=== PATIENT | female | born 1965 | race Caucasian/White ===

== ENCOUNTER 2016-10-21 09:49 | Emergency (ER) | payer BC ==
[~2016-10-21] VITALS: Ht 172.7 cm; Wt 118.9 kg
[2016-10-21 09:55] VITALS: BP 135/92; PULSE 97; RESP 18; TEMP 98.9; O2SAT 97
--- NOTE | 2016-10-21 10:45 | PD ---
HPI Chief Complaint: ENT Complaint Time Seen by Provider: 10:23 Travel History International Travel<30 days: No Contact w/Intl Traveler<30days: No Traveled to known affect area: No History of Present Illness HPI 51-year-old female came to the emergency room with history of flulike symptoms since past 5 days. She has been coughing, nasal congestion, body aches and running fever. Last night her temperature was 101.3. Patient did not get her flu shot this winter. Patient does not have insurance or primary care at this point. She has history of diabetes which she was managing and checking last 2 years ago. However she hasn't done that in past 2 years. She was afebrile in the triage and vital signs were otherwise stable. No history of vomiting or diarrhea. Last night she was dizzy as well. [facility] Past Medical History Narrative Medical List of her past medical history, social and family history was reviewed from the nursing note. Autoimmune Disease: No Cancer: No Cardiovascular Problems: No Diabetes: Yes Diminished Hearing: No Endocrine: No Gastrointestinal Disorders: No Genitourinary: No Immune Disorder: No Musculoskeletal: No Neurologic: No Psychiatric: No Reproductive: No Respiratory: No Immunizations Current: Yes Thyroid Disease: No ?: Not Menopausal: Yes : 3 Para: 2 Miscarriage: 1 Ovarian Cysts: Yes (REMOVED , 98) Past Surgical History Abdominal Surgery: Yes (ovarian cyst and incisional hernia) Cardiac Surgery: No Ear Surgery: No Endocrine Surgery: No Eye Surgery: No Genitourinary Surgery: No Gynecologic Surgery: Yes (ovarian cyst) Hysterectomy: Yes (PARTIAL 1994) Neurologic Surgery: No Oral Surgery: Yes (wisdom teeth. upper teeth removed.) Thoracic Surgery: No Other Surgery: Yes (1994 knee kemar. 94 ovarian cyst 96 incisional hernia carpal tunnel bilateral) Social History Alcohol Use: No Tobacco Use: No Substance Use: No Allergies-Medications (Allergen,Severity, Reaction): Coded Allergies: Ancef (Verified Allergy, Severe, HIVES, 10/21/16) Iodine (Verified Allergy, Severe, ANAPHYLACTIC, 10/21/16) Comments List of her allergies reviewed from the nursing note. Reported Meds & Prescriptions Reported Meds & Active Scripts Active Glucophage (Metformin HCl) 500 Mg Tab 500 Mg PO BIDPC With meals Macrobid (Nitrofurantoin Monoh/Nitrofur Macro) 100 Mg Cap 100 Mg PO BID 10 Days Narrative Medication List of her home medications reviewed from the nursing note. Review of Systems Except as stated in HPI: all other systems reviewed are Neg Physical Exam Narrative GENERAL: Awake, alert, obese, mild distress SKIN: Warm and dry. HEAD: Atraumatic. Normocephalic. EYES: Pupils equal and round. No scleral icterus. No injection or drainage. ENT: No nasal bleeding or discharge. Mucous membranes pink and moist. NECK: Trachea midline. No JVD. CARDIOVASCULAR: Regular rate and rhythm. No murmur appreciated. RESPIRATORY: No accessory muscle use. Clear to auscultation. Breath sounds equal bilaterally. GASTROINTESTINAL: Abdomen soft, non-tender, nondistended. Hepatic and splenic margins not palpable. MUSCULOSKELETAL: No obvious deformities. No clubbing. No cyanosis. No edema. NEUROLOGICAL: Awake and alert. No obvious cranial nerve deficits. Motor grossly within normal limits. Normal speech. PSYCHIATRIC: Appropriate mood and affect; insight and judgment normal. Data Data Last Documented VS Vital Signs Date Time Temp Pulse Resp B/P Pulse Ox O2 Delivery O2 Flow Rate FiO2 10/21/16 14:25 99.0 96 18 142/88 96 10/21/16 13:46 Room Air Orders Blood Glucose (10/21/16 10:59) Chest, Single Ap (10/21/16 ) Influenzae A/B Antigen (10/21/16 10:59) Complete Blood Count With Diff (10/21/16 11:29) Comprehensive Metabolic Panel (10/21/16 11:29) B-Type Natriuretic Peptide (10/21/16 11:29) Troponin I (10/21/16 11:29) Blood Culture (10/21/16 11:29) Iv Access Insert/Monitor (10/21/16 11:29) Electrocardiogram (10/21/16 11:29) Ecg Monitoring (10/21/16 11:29) Oximetry (10/21/16 11:29) Oxygen Administration (10/21/16 11:29) Sodium Chloride 0.9% Flush (Ns Flush) (10/21/16 11:30) Urinalysis - C+S If Indicated (10/21/16 11:29) Lactic Acid (10/21/16 11:29) Sodium Chlor 0.9% 1000 Ml Inj (Ns 1000 M (10/21/16 11:30) Resp Blood Gas Venous (10/21/16 ) Blood Gas Venous (Vbg) (10/21/16 11:48) Metformin (Glucophage) (10/21/16 12:15) Urine Culture (10/21/16 12:00) Nitrofurantoin Monohyd Macrocr (Macrobid (10/21/16 13:15) Blood Glucose (10/21/16 13:14) Labs Laboratory Tests Test 10/21/16 10/21/16 10/21/16 11:48 12:00 12:20 Blood Gas Puncture Site IV Blood Gas Patient Temperature 98.6 Venous Blood pH 7.49 Venous Blood Partial Pressure 31 mmHg CO2 Venous Blood Partial Pressure 29 mmHg O2 Venous Blood HCO3 23 mmol/L Venous Blood Oxygen Saturation 62 % Venous Blood Oxygen Content 13.6 Vol % Venous Blood Base Excess -0.3 mmol/L Oxygen Delivery Device RA Blood Gas Inspired Oxygen 21 % Urine Collection Type CLEAN CATCH Urine Color YELLOW Urine Turbidity SLIGHT Urine pH 5.5 Urine Specific [place] 1.035 Urine Protein TRACE mg/dL Urine Glucose (UA) 1000 OR GREATER mg/dL Urine Ketones 40 mg/dL Urine Occult Blood TRACE Urine Nitrite POS Urine Bilirubin NEG Urine Leukocyte Esterase TRACE Urine RBC 25-49 /hpf Urine WBC 100-200 /hpf Urine WBC Clumps MOD Urine Squamous Epithelial > 8 /hpf Cells Urine Transitional Epithelial 0-5 /hpf Cells Urine Bacteria MANY /hpf Microscopic Urinalysis Comment CULTURE INDICATED Urine Collection Time 12:00 Sodium Level 138 MEQ/L Potassium Level 3.9 MEQ/L Chloride Level 106 MEQ/L Carbon Dioxide Level 21.7 MEQ/L Anion Gap 10 MEQ/L Blood Urea Nitrogen 10 MG/DL Creatinine 0.80 MG/DL Estimat Glomerular Filtration 75 ML/MIN Rate Random Glucose 355 MG/DL Lactic Acid Level 1.4 mmol/L Calcium Level 8.5 MG/DL Total Bilirubin 0.8 MG/DL Aspartate Amino Transf 20 U/L (AST/SGOT) Alanine Aminotransferase 31 U/L (ALT/SGPT) Alkaline Phosphatase 123 U/L Troponin I LESS THAN 0.02 NG/ML B-Type Natriuretic Peptide 7 PG/ML Total Protein 7.8 GM/DL Albumin 3.2 GM/DL White Blood Count 6.1 TH/MM3 Red Blood Count 5.22 MIL/MM3 Hemoglobin 15.4 GM/DL Hematocrit 45.9 % Mean Corpuscular Volume 87.8 FL Mean Corpuscular Hemoglobin 29.5 PG Mean Corpuscular Hemoglobin 33.6 % Concent Red Cell Distribution Width 12.2 % Platelet Count 214 TH/MM3 Mean Platelet Volume 8.7 FL Neutrophils (%) (Auto) 35.2 % Lymphocytes (%) (Auto) 47.0 % Monocytes (%) (Auto) 12.8 % Eosinophils (%) (Auto) 3.1 % Basophils (%) (Auto) 1.9 % Neutrophils # (Auto) 2.1 TH/MM3 Lymphocytes # (Auto) 2.9 TH/MM3 Monocytes # (Auto) 0.8 TH/MM3 Eosinophils # (Auto) 0.2 TH/MM3 Basophils # (Auto) 0.1 TH/MM3 CBC Comment DIFF FINAL Differential Comment MDM Medical Decision Making Medical Screen Exam Complete: Yes Emergency Medical Condition: Yes Medical Record Reviewed: Yes Differential Diagnosis Influenza, hyperglycemia, left right abnormalities, pneumonia, sepsis Narrative Course 1:36 PM initial blood glucose came back as 347. Chest x-ray was within normal limits and Influenza A was positive. Based on that his blood test was ordered including venous blood gas to rule out DKA. Patient is not in DKA but hyperglycemia. She also happens to have a UTI. She was given 1 dose of by mouth Macrobid and 1 L of IV fluid bolus. A repeat blood glucose has been ordered at this point. Patient has already had her flulike symptoms for past 5 days and hence it's too late to treat her with Tamiflu. I have started her on Glucophage 500 mg and we'll send her home with prescription for Macrobid and Glucophage. Patient will need to find a primary care and have ongoing management for her diabetes which I have strongly emphasized to her. I will discharge her home at this point. I'm waiting for her repeat blood glucose. Diagnosis Primary Impression: Influenza A Additional Impressions: UTI (urinary tract infection) Qualified Code: N39.0 - Urinary tract infection without hematuria, site unspecified Hyperglycemia Noncompliance with diabetes treatment Referrals: Primary Care Physician 3 days Additional Instructions: Please take the medications as per the prescription direction. You have to find a primary care for yourselves who can manage her diabetes better. Please return to the ER if the condition worsens or any other new concerns. Keep herself well hydrated telemetry a symptoms improve. Continue to check your blood sugar at least twice a day for the meals. Med/Other Pt SpecificInfo: Prescription(s) given Scripts Metformin (Glucophage)500 Mg [id number] Mg PO BIDPC #60 TAB Ref 0 With meals Prov:Matthew Ashton MD 10/21/16 Nitrofurantoin Monohydrate Macrocrystals (Macrobid)100 Mg [id number] Mg PO BID 10 Days Ref 0 Prov:Matthew Ashton MD 10/21/16 Disposition: 01 DISCHARGE HOME Condition: Stable Matthew Ashton MD Oct 21, 2016 10:45
--- NOTE | 2016-10-21 11:27 | RADHPO ---
EXAM DATE/TIME: 10/21/2016 11:09 [facility] COMPARISON: No previous studies available for comparison. INDICATIONS : cough, congestion, short of breath, runny nose. MEDICAL HISTORY : Venous insufficiency. Asthma. Diabetic. SURGICAL HISTORY : Ovarian cyst removal.Partial hysterectomy. Hernia repair. ENCOUNTER: Initial ACUITY: 4 - 6 days PAIN SCORE: 0/10 LOCATION: chest FINDINGS: A single view of the chest demonstrates the lungs to be symmetrically aerated without evidence of mas s, infiltrate or effusion. The cardiomediastinal contours are unremarkable. Osseous structures are intact. CONCLUSION: No acute disease. There is no evidence of pneumonia Romeo Trinidad MD on October 21, 2016 at 11:21 Board Certified Radiologist. This report was verified electronically.
[2016-10-21] MEDS ORDERED: SODIUM CHLOR 0.9% 1000 ML INJ 1,000 ML IV ONE (11:30)
[2016-10-21] MEDS ORDERED: SODIUM CHLORIDE 0.9% FLUSH 5 ML FLUSH IVF PRN (11:30)
[2016-10-21 12:01] LABS: BLOOD GAS VENOUS BASE EXCESS -0.3 mmol/L (-2-2); BLOOD GAS VENOUS HCO3 23 mmol/L (22-26); BLOOD GAS VENOUS O2 CONTENT 13.6 Vol % (9.0-17.0); BLOOD GAS VENOUS O2 HGB SAT 62 % (70-76); BLOOD GAS VENOUS PCO2 31 mmHg (44-48); BLOOD GAS VENOUS PO2 29 mmHg (35-40); BLOOD GAS VENOUS pH 7.49 (7.360-7.400); TEMP CORR TO 98.6
[2016-10-21 12:03] LABS: CRITICAL VALUE YES; DRAW SITE IV; FIO2 21 %; OXYGEN DEVICE RA; STAT YES
[2016-10-21] MEDS ORDERED: metFORMIN HCL 500 MG TAB PO ONE (12:15)
[2016-10-21 12:20] LABS: BLOOD, URINE TRACE (NEG); KETONE, URINE 40 mg/dL (NEG); PH, URINE 5.5 (5.0-8.5)
[2016-10-21 12:21] LABS: GLUCOSE,URINE 1000 OR GREATER mg/dL (NEG); METHOD OF COLLECTION CLEAN CATCH; NITRITE,URINE POS (NEG)
[2016-10-21 12:22] LABS: URINE COLOR YELLOW (YELLW/STRAW); WBC, URINE 100-200 /hpf (0-5)
[2016-10-21 12:23] LABS: BACTERIA, URINE MANY /hpf; COMMENT (UR) CULTURE INDICATED; CULTURE IF INDICATED CULTURE INDICATED; SQUAMOUS EPITHELIAL CELL URINE > 8 /hpf (0-5); TRANSITIONAL EPI CELLS, URINE 0-5 /hpf
[2016-10-21 12:30] LABS: AUTOMATED NEUTROPHIL # 2.1 TH/MM3 (1.8-7.7); BASOPHIL # 0.1 TH/MM3 (0-0.2); BASOPHIL % 1.9 % (0.0-2.0); EOSINOPHIL # 0.2 TH/MM3 (0-0.4); EOSINOPHIL % 3.1 % (0.0-4.0); HEMATOCRIT 45.9 % (35.0-46.0); HEMO FLAGS DIFF FINAL; LYMPHOCYTE # 2.9 TH/MM3 (1.0-4.8); MEAN CELL VOLUME 87.8 FL (80.0-100.0); MEAN CORPUSCULAR HEMOGLOBIN 29.5 PG (27.0-34.0); MEAN CORPUSCULAR HGB CONC 33.6 % (32.0-36.0); MONO % 12.8 % (0.0-8.0); NEUT % 35.2 % (16.0-70.0); PLATELET COUNT 214 TH/MM3 (150-450); RED BLOOD COUNT 5.22 MIL/MM3 (4.00-5.30); RED CELL DISTRIBUTION WIDTH 12.2 % (11.6-17.2); WHITE BLOOD COUNT 6.1 TH/MM3 (4.0-11.0)
[2016-10-21 12:39] LABS: CHLORIDE 106 MEQ/L (98-107); POTASSIUM 3.9 MEQ/L (3.5-5.1); SODIUM (NA) 138 MEQ/L (136-145)
[2016-10-21 12:43] LABS: ANION GAP 10 MEQ/L (5-15); BICARBONATE 21.7 MEQ/L (21.0-32.0); BLOOD UREA NITROGEN 10 MG/DL (7-18)
[2016-10-21 12:46] LABS: ALT (GPT) 31 U/L (10-53); AST (GOT) 20 U/L (15-37); GLOMERULAR FILTRATION RATE 75 ML/MIN (>89)
[2016-10-21 12:47] LABS: TOTAL BILIRUBIN ADULT 0.8 MG/DL (0.2-1.0)
[2016-10-21 12:49] LABS: ALKALINE PHOSPHATASE 123 U/L (45-117)
[2016-10-21] MEDS ORDERED: NITROFURANTOIN MONOHYD MACROCR 100 MG CAP PO ONE (13:15)
[2016-10-21] MEDS ORDERED: METF500 PO (13:39)
[2016-10-21] MEDS ORDERED: MACR100C2 PO (13:39)
[2016-10-21 13:46] VITALS: RESP 16; O2SAT 97
[2016-10-21 14:25] VITALS: BP 142/88; TEMP 99
--- NOTE | 2016-10-22 15:11 | EKG ---
Date Performed: 10/21/2016 Time Performed: 11:42:44 PTAGE: 51 years EKG: Sinus rhythm Low QRS voltages in precordial leads Borderline ECG NO PREVIOUS TRACING DOCTOR: Gregg Jones Interpretating Date/Time 10/22/2016 15:10:41
== END 2016-10-21 14:26 | disposition home or self-care (01) ==
LOC: PHEFT 09:49
DX: J09.X2 Influenza due to identified novel influenza A virus with other respiratory manifestations (principal); N39.0 Urinary tract infection, site not specified; B96.20 Unspecified Escherichia coli [E. coli] as the cause of diseases classified elsewhere; E11.65 Type 2 diabetes mellitus with hyperglycemia; Z91.14 Patient's other noncompliance with medication regimen
CPT/HCPCS: 71010; 80053; 81001; 82805; 83605; 83880; 84484; 85025; 87040; 87077; 87086; 87186; 87804; 93005; 99284; J7030

== ENCOUNTER 2016-10-27 14:33 | Emergency (ER) | payer BC ==
[~2016-10-27] VITALS: Ht 172.7 cm; Wt 119.2 kg
[~2016-10-27 14:33] MED LIST: MACR100C2 PO; METF500 PO
[2016-10-27 14:46] VITALS: BP 126/86; PULSE 89; RESP 18; TEMP 99.3; O2SAT 98
[2016-10-27] MEDS ORDERED: DEXAMETHASONE SOD PHOS 20 MG/5 ML VIAL IV PUSH ONE (18:45)
[2016-10-27] MEDS ORDERED: SODIUM CHLOR 0.9% 1000 ML INJ 1,000 ML IV SCH ×2 (18:45)
[2016-10-27] MEDS ORDERED: ONDANSETRON HCL 4 MG/2 ML VIAL IV PUSH ONE (18:45)
[2016-10-27 18:48] LABS: BLOOD, URINE NEG (NEG); GLUCOSE,URINE 250 mg/dL (NEG); KETONE, URINE NEG (NEG)
[2016-10-27 18:50] LABS: AUTOMATED NEUTROPHIL # 4.3 TH/MM3 (1.8-7.7); BASOPHIL # 0.1 TH/MM3 (0-0.2); BASOPHIL % 1.3 % (0.0-2.0); EOSINOPHIL # 0.3 TH/MM3 (0-0.4); EOSINOPHIL % 3.5 % (0.0-4.0); HEMATOCRIT 42.7 % (35.0-46.0); HEMO FLAGS DIFF FINAL; LYMPHOCYTE # 3.5 TH/MM3 (1.0-4.8); MEAN CELL VOLUME 87.1 FL (80.0-100.0); MEAN CORPUSCULAR HEMOGLOBIN 29.4 PG (27.0-34.0); MEAN CORPUSCULAR HGB CONC 33.8 % (32.0-36.0); MONO % 9.3 % (0.0-8.0); NEUT % 46.9 % (16.0-70.0); PLATELET COUNT 289 TH/MM3 (150-450); RED CELL DISTRIBUTION WIDTH 12.1 % (11.6-17.2)
[2016-10-27 18:56] LABS: CHLORIDE 106 MEQ/L (98-107); POTASSIUM 3.7 MEQ/L (3.5-5.1); SODIUM (NA) 141 MEQ/L (136-145)
[2016-10-27 18:57] LABS: NITRITE,URINE POS (NEG); URINE COLOR YELLOW (YELLW/STRAW)
--- NOTE | 2016-10-27 18:57 | RADHPO ---
EXAM DATE/TIME: 10/27/2016 18:44 [facility] COMPARISON: CHEST SINGLE AP, October 21, 2016, 11:09. INDICATIONS : Flu like symptoms x 1 week. Cough. MEDICAL HISTORY : Diabetes mellitus type II. SURGICAL HISTORY : None. ENCOUNTER: Subsequent ACUITY: 1 week PAIN SCORE: 2/10 LOCATION: Bilateral chest FINDINGS: A single view of the chest demonstrates the lungs to be symmetrically aerated without evidence of mas s, infiltrate or effusion. The cardiomediastinal contours are unremarkable. Osseous structures are intact. CONCLUSION: No acute disease. No significant change has occurred. Kali Patel MD on October 27, 2016 at 18:55 Board Certified Radiologist. This report was verified electronically.
[2016-10-27 18:59] LABS: BACTERIA, URINE MANY /hpf; COMMENT (UR) CULTURE INDICATED; CULTURE IF INDICATED CULTURE INDICATED; RBC, URINE 0-3 /hpf (0-3)
[2016-10-27 19:00] LABS: ANION GAP 9 MEQ/L (5-15); BICARBONATE 26.3 MEQ/L (21.0-32.0); BLOOD UREA NITROGEN 7 MG/DL (7-18)
[2016-10-27 19:03] LABS: ALT (GPT) 37 U/L (10-53); AST (GOT) 20 U/L (15-37); GLOMERULAR FILTRATION RATE 86 ML/MIN (>89)
[2016-10-27 19:04] LABS: TOTAL BILIRUBIN ADULT 0.9 MG/DL (0.2-1.0)
[2016-10-27 19:06] LABS: ALKALINE PHOSPHATASE 110 U/L (45-117)
[2016-10-27 19:07] VITALS: RESP 18; O2SAT 98
[2016-10-27] MEDS ORDERED: CIPROFLOXACIN 400 MG PREMIX 200 ML IV ONE (19:45)
[2016-10-27] MEDS ORDERED: FLUCONAZOLE 100 MG TAB PO ONE (19:45)
[2016-10-27] MEDS ORDERED: LEVA750T PO ×2 (19:54→20:01)
[2016-10-27] MEDS ORDERED: FLUC150T PO ×2 (19:54→20:01)
--- NOTE | 2016-10-27 19:55 | PD ---
HPI Chief Complaint: Fever Time Seen by Provider: 17:42 Travel History International Travel<30 days: No Contact w/Intl Traveler<30days: No Traveled to known affect area: No History of Present Illness HPI So 51 year-old woman presents to the emergency department complaining of feeling poorly for the past week or 2. She was diagnosed with flu a 6 days ago. She's had urinary discomfort and was diagnosed with a UTI as well. She take the antibiotics that she was given but then developed diarrhea and a yeast infection. She's had persistent diarrhea, cough congestion, myalgias, and UTI symptoms. Over the past day or so she also developed prominent cervical adenopathy which is tender. History Past Medical History Narrative Medical Diabetes Menopausal: Yes : 3 Para: 2 Social History Alcohol Use: No Tobacco Use: No Allergies-Medications (Allergen,Severity, Reaction): Coded Allergies: Ancef (Verified Allergy, Severe, HIVES, 10/27/16) Iodine (Verified Allergy, Severe, ANAPHYLACTIC, 10/27/16) Reported Meds & Prescriptions Reported Meds & Active Scripts Active Glucophage (Metformin HCl) 500 Mg Tab 500 Mg PO BIDPC With meals Review of Systems Except as stated in HPI: all other systems reviewed are Neg Physical Exam Narrative GENERAL: Obese 51 year-old woman, tearful and sad, but nontoxic appearing. SKIN: Warm and dry. HEAD: Atraumatic. Normocephalic. EYES: Pupils equal and round. No scleral icterus. No injection or drainage. ENT: No nasal bleeding or discharge. Mucous membranes pink and moist. NECK: Trachea midline. Marked anterior cervical adenopathy, especially on the left. Tender. CARDIOVASCULAR: Regular rate and rhythm. No murmur appreciated. RESPIRATORY: No accessory muscle use. Clear to auscultation. Breath sounds equal bilaterally. GASTROINTESTINAL: Abdomen soft, non-tender, nondistended. Hepatic and splenic margins not palpable. MUSCULOSKELETAL: No obvious deformities. No edema. NEUROLOGICAL: Awake and alert. No obvious cranial nerve deficits. Motor grossly within normal limits. Normal speech. PSYCHIATRIC: Appropriate mood and affect; insight and judgment normal. Data Data Last Documented VS Vital Signs Date Time Temp Pulse Resp B/P Pulse Ox O2 Delivery O2 Flow Rate FiO2 10/27/16 19:08 85 18 98 Room Air 10/27/16 14:46 99.3 126/86 Orders Complete Blood Count With Diff (2/23/17 18:31) Comprehensive Metabolic Panel (10/27/16 18:31) Lactic Acid Sepsis Protocol (10/27/16 18:31) Urinalysis - C+S If Indicated (10/27/16 18:31) Chest, Single Ap (10/27/16 18:31) Blood Glucose (10/27/16 18:31) Ecg Monitoring (10/27/16 18:31) Iv Access Insert/Monitor (10/27/16 18:31) Oximetry (10/27/16 18:31) Oxygen Administration (10/27/16 18:31) Sodium Chlor 0.9% 1000 Ml Inj (Ns 1000 M (10/27/16 18:45) Sodium Chlor 0.9% 1000 Ml Inj (Ns 1000 M (10/27/16 18:45) Dexamethasone Inj (Decadron Inj) (10/27/16 18:45) Ondansetron Inj (Zofran Inj) (10/27/16 18:45) Urine Culture (10/27/16 18:40) Fluconazole (Diflucan) (10/27/16 19:45) Ciprofloxacin 400 Mg Premix (Cipro 400 M (10/27/16 19:45) Labs Laboratory Tests Test 10/27/16 18:40 White Blood Count 9.0 TH/MM3 Red Blood Count 4.90 MIL/MM3 Hemoglobin 14.4 GM/DL Hematocrit 42.7 % Mean Corpuscular Volume 87.1 FL Mean Corpuscular Hemoglobin 29.4 PG Mean Corpuscular Hemoglobin 33.8 % Concent Red Cell Distribution Width 12.1 % Platelet Count 289 TH/MM3 Mean Platelet Volume 8.0 FL Neutrophils (%) (Auto) 46.9 % Lymphocytes (%) (Auto) 39.0 % Monocytes (%) (Auto) 9.3 % Eosinophils (%) (Auto) 3.5 % Basophils (%) (Auto) 1.3 % Neutrophils # (Auto) 4.3 TH/MM3 Lymphocytes # (Auto) 3.5 TH/MM3 Monocytes # (Auto) 0.8 TH/MM3 Eosinophils # (Auto) 0.3 TH/MM3 Basophils # (Auto) 0.1 TH/MM3 CBC Comment DIFF FINAL Differential Comment Urine Color YELLOW Urine Turbidity CLOUDY Urine pH 6.0 Urine Specific [place] 1.020 Urine Protein NEG mg/dL Urine Glucose (UA) 250 mg/dL Urine Ketones NEG mg/dL Urine Occult Blood NEG Urine Nitrite POS Urine Bilirubin NEG Urine Leukocyte Esterase SMALL Urine RBC 0-3 /hpf Urine WBC 50-99 /hpf Urine Squamous Epithelial 6-8 /hpf Cells Urine Bacteria MANY /hpf Microscopic Urinalysis Comment CULTURE INDICATED Sodium Level 141 MEQ/L Potassium Level 3.7 MEQ/L Chloride Level 106 MEQ/L Carbon Dioxide Level 26.3 MEQ/L Anion Gap 9 MEQ/L Blood Urea Nitrogen 7 MG/DL Creatinine 0.71 MG/DL Estimat Glomerular Filtration 86 ML/MIN Rate Random Glucose 176 MG/DL Lactic Acid Level 1.2 mmol/L Calcium Level 9.0 MG/DL Total Bilirubin 0.9 MG/DL Aspartate Amino Transf 20 U/L (AST/SGOT) Alanine Aminotransferase 37 U/L (ALT/SGPT) Alkaline Phosphatase 110 U/L Total Protein 7.8 GM/DL Albumin 3.5 GM/DL MDM Medical Decision Making Medical Screen Exam Complete: Yes Emergency Medical Condition: Yes Interpretation(s) Laboratory Tests Test 10/27/16 18:40 White Blood Count 9.0 TH/MM3 Red Blood Count 4.90 MIL/MM3 Hemoglobin 14.4 GM/DL Hematocrit 42.7 % Mean Corpuscular Volume 87.1 FL Mean Corpuscular Hemoglobin 29.4 PG Mean Corpuscular Hemoglobin 33.8 % Concent Red Cell Distribution Width 12.1 % Platelet Count 289 TH/MM3 Mean Platelet Volume 8.0 FL Neutrophils (%) (Auto) 46.9 % Lymphocytes (%) (Auto) 39.0 % Monocytes (%) (Auto) 9.3 % Eosinophils (%) (Auto) 3.5 % Basophils (%) (Auto) 1.3 % Neutrophils # (Auto) 4.3 TH/MM3 Lymphocytes # (Auto) 3.5 TH/MM3 Monocytes # (Auto) 0.8 TH/MM3 Eosinophils # (Auto) 0.3 TH/MM3 Basophils # (Auto) 0.1 TH/MM3 CBC Comment DIFF FINAL Differential Comment Urine Color YELLOW Urine Turbidity CLOUDY Urine pH 6.0 Urine Specific [place] 1.020 Urine Protein NEG mg/dL Urine Glucose (UA) 250 mg/dL Urine Ketones NEG mg/dL Urine Occult Blood NEG Urine Nitrite POS Urine Bilirubin NEG Urine Leukocyte Esterase SMALL Urine RBC 0-3 /hpf Urine WBC 50-99 /hpf Urine Squamous Epithelial 6-8 /hpf Cells Urine Bacteria MANY /hpf Microscopic Urinalysis Comment CULTURE INDICATED Sodium Level 141 MEQ/L Potassium Level 3.7 MEQ/L Chloride Level 106 MEQ/L Carbon Dioxide Level 26.3 MEQ/L Anion Gap 9 MEQ/L Blood Urea Nitrogen 7 MG/DL Creatinine 0.71 MG/DL Estimat Glomerular Filtration 86 ML/MIN Rate Random Glucose 176 MG/DL Lactic Acid Level 1.2 mmol/L Calcium Level 9.0 MG/DL Total Bilirubin 0.9 MG/DL Aspartate Amino Transf 20 U/L (AST/SGOT) Alanine Aminotransferase 37 U/L (ALT/SGPT) Alkaline Phosphatase 110 U/L Total Protein 7.8 GM/DL Albumin 3.5 GM/DL Differential Diagnosis Influenza, UTI, infection, other Narrative Course Medical decision-making milana jaramillo is a 51 year-old woman presents to the emergency department feeling generally poorly with known influenza A, previous UTI with Escherichia coli, who is having persistent symptoms. About 6 days now. She feels miserable. She is tearful and crying because she's been waiting so long in the emergency department. I don't think this is anything more sinister. Her blood sugars been under good control and she is just on metformin. I think that dose steroids to give her some relief from the discomfort from her adenopathy. We can give her some IV fluids, Toradol, and check labs to make sure is no evidence of severe sepsis or marked electrolyte derangements. We'll place patient on Cipro for her UTI. We'll give her a dose of fluconazole for her [place] infection, recommend follow-up. Diagnosis Primary Impression: Influenza A Additional Impression: UTI (urinary tract infection) Qualified Code: N30.00 - Acute cystitis without hematuria Additional Instructions: Take fluconazole in one week if yeast infection persist. Take Levaquin as prescribed. Follow-up with your primary doctor in 2-4 days. Return to the emergency department for any new or worsening symptoms. Med/Other Pt SpecificInfo: Prescription(s) given Scripts Fluconazole 150 Mg [id number] Mg PO ONCE #1 TAB Ref 0 Prov:Monroe Sauceda MD 10/27/16 Levofloxacin (Levaquin)750 Mg [id number] Mg PO DAILY 5 Days Ref 0 Prov:Monroe Sauceda MD 10/27/16 Disposition: 01 DISCHARGE HOME Condition: Stable Monroe Sauceda MD Oct 27, 2016 19:54
[2016-10-27] MEDS ORDERED: HYDR1SOL20 PO (20:21)
[2016-10-27 20:33] VITALS: BP 133/80; PULSE 77; RESP 18; TEMP 98.7; O2SAT 99
[2016-10-27 21:23] VITALS: BP 145/86
== END 2016-10-27 21:25 | disposition home or self-care (01) ==
LOC: PHED 14:33
DX: J09.X2 Influenza due to identified novel influenza A virus with other respiratory manifestations (principal); N39.0 Urinary tract infection, site not specified; M79.1 Myalgia; E11.9 Type 2 diabetes mellitus without complications; B96.20 Unspecified Escherichia coli [E. coli] as the cause of diseases classified elsewhere
CPT/HCPCS: 71010; 80053; 81001; 83605; 85025; 87077; 87086; 87186; 96361; 96365; 96375; 99284; J0744; J1100; J2405; J7030

== ENCOUNTER 2017-08-24 14:30 | Emergency (ER) | payer BC ==
[~2017-08-24] VITALS: Ht 172.7 cm; Wt 120.3 kg
[~2017-08-24 14:30] MED LIST changes: -MACR100C2 PO
[2017-08-24 14:40] VITALS: BP 152/82; PULSE 80; RESP 17; TEMP 98.2; O2SAT 97
[2017-08-24] MEDS ORDERED: DIABETIC MED (14:50)
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
--- NOTE | 2017-08-24 15:14 | RADRPT ---
EXAM DATE/TIME: 08/24/2017 14:56 [facility] COMPARISON: ELBOW RIGHT COMPLETE (4 VWS), July 02, 2017, 19:03. INDICATIONS : Hit elbow on the wall yesterday and is having pain and swelling on lateral side. MEDICAL HISTORY : None. SURGICAL HISTORY : Rt. elbow surgery. ENCOUNTER: Initial ACUITY: 1 day PAIN SCORE: 7/10 LOCATION: Right Lateral side FINDINGS: Multiple view examination of the right elbow demonstrates marked bony remodeling of the radial head a nd neck region. There 5 screws within the distal humerus laterally. There is an ununited lateral epic ondyle fracture unchanged. I don't see any obvious foreign body in the subcutaneous tissues. No joint effusion is seen. No ostial lysis to suggest infection.. Bony mineralization is normal. CONCLUSION: Stable examination of the right elbow. 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 No acute fracture or change identified Monroe Jaimes MD on August 24, 2017 at 15:11 Board Certified Radiologist. This report was verified electronically.
[2017-08-24] MEDS ORDERED: NAPR500T2 PO (15:31)
[2017-08-24] MEDS ORDERED: NAPROXEN 500 MG TAB PO ONE (15:45)
== END 2017-08-24 15:42 | disposition home or self-care (01) ==
LOC: PHEFT 14:30
DX: M79.601 Pain in right arm (principal); M79.1 Myalgia; E11.9 Type 2 diabetes mellitus without complications; Z79.84 Long term (current) use of oral hypoglycemic drugs
CPT/HCPCS: 73080; 99283

== ENCOUNTER → 2017-10-24 | Day surgery (SDC) | payer BC ==
[~2017-10-24] VITALS: Ht 172.7 cm; Wt 120.4 kg
[~2017-10-24] MED LIST changes: +ACETAMINOPHEN 1000 MG/100 ML 100 ML IV ONE; +ACETAMINOPHEN/HYDROcodone 325 MG/7.5 MG TAB PO PRN; +BUPIVACAINE HCL PF 0.5% 30 ML VIAL ONE; +CANA1TAB7 PO; +CHLORHEXIDINE GLUCONATE 2 % 1 PACK (2 CLOTHS) TOPICAL PRN; +CHLORHEXIDINE GLUCONATE 4% SOLN 120 ML BTL TOPICAL SCH; +CLINDAMYCIN 900 MG/NS 100 ML IV SCH; +CLINDAMYCIN PHOS 900 MG/6 ML VIAL ONE; +DEXAMETHASONE SOD PHOS 4 MG/ML VIAL IV ONE; +FAT EMULSION 20% INJ 0 ML ONE; +GENTAMICIN SULFATE 80 MG/2 ML VIAL ONE; +GLYCOPYRROLATE 1 MG/5 ML SYRINGE IV PUSH ONE; +HYDR-3366 PO; +LACTATED RINGER'S 1000 ML IV PRN; +LIDOCAINE HCL 1% PF 5 ML AMPULE ONE; +LIDOCAINE HCL 1% PF 5 ML SYRINGE OTHER ONE; -METF500 PO; +METOPROLOL TARTRATE 25 MG TAB PO PRN; +MIDAZOLAM HCL 2 MG/2 ML VIAL ONE; +MORPHINE SULFATE 4 MG/ML INJ IV PUSH PRN; +NEOSTIGMINE 5 MG/5 ML SYRINGE IV PUSH ONE; +ONDANSETRON HCL 4 MG/2 ML VIAL IV ONE; +ONDANSETRON HCL 4 MG/2 ML VIAL IV PUSH PRN; +PROPOFOL 200 MG/20 ML AMP IV ONE; +ROCURONIUM INJ 50 MG/5 ML SYRINGE IV PUSH ONE; +SODIUM CHLORID 0.9% 500 ML IV PRN; +SODIUM CHLORIDE 0.9% FLUSH 10 ML FLUSH IV FLUSH PRN; +SODIUM CHLORIDE 0.9% FLUSH 10 ML FLUSH IV FLUSH SCH; +SODIUM CHLORIDE 0.9% INJ 100 ML ONE; +VANCOMYCIN 1000 MG/NS 250 ML (for <70 kg) IV SCH; +VANCOMYCIN HCL 1000 MG VIAL ONE
[2017-10-24 07:55] VITALS: PULSE 80
--- NOTE | 2017-10-24 10:41 | PD.OP ---
cc: Jaylen Orozco MD Operative Report Date of Surgery: Oct 24, 2017 Preoperative Diagnosis: Painful hardware right elbow Postoperative Diagnosis: Procedure: Removal of deep hardware right elbow, capsulectomy right elbow, manipulation under anesthesia right elbow Anesthesia: Gen. Surgeon: Jaylen Orozco Supply Chain Manager(s): IVETT Tolbert PA-C The surgical procedure was assisted by my physician assistant manager pt. My P.A. presence was necessary throughout this case for the manipulation and positioning of the surgical extremity. My P.A. was assisting me throughout the duration of this procedure. The skill set of a physician assistant manager pt was medically necessary to complete this procedure. During the surgical case the machine tool technology instructor was working at the back table and the physician assistant manager pt was directly assisting me. Operation and Findings: Elena is well-known to me from previous surgery for comminuted intra-articular right distal humerus fracture. Patient continued to have pain and crepitus with elbow motion. Patient wished to have hardware removed. I had a long discussion with patient regarding potential complications including injury to the radial, median, and ulnar nerves which could cause paralysis and weakness of the hand. After detailed discussion of risk and benefits, patient wished to proceed with surgery. Operative site was marked. She was brought to the operative room. She is given IV sedation and general anesthesia. Right arm was prepped with alcohol followed by Hibiclens and draped usual sterile fashion. Timeout procedure was performed. IV antibiotics were given prior to incision. Procedure began with a 5 inch incision over the antecubital fossa. Incision was made through previous scar. Subcutaneous tissues dissected with Bovie. There was dense scar tissue and antecubital fossa. The biceps muscle was identified. The brachial radialis muscle was also identified. The interval between these 2 muscles was opened. The radial nerve was identified and this interval and protected throughout the procedure. At this point the anterior capsule was visualized. Attention was now turned to capsulectomy. Soft tissue was retracted. The capsule was incised longitudinally. A portion of the capsule was excised. Care was taken to avoid injury to the median nerve and brachial artery. Next attention was turned to removal of hardware. There were a total of 5 screws in the distal humerus. Each of the screws was identified under fluoroscopy. 3 of the screw heads were visible. Each of the screws was removed using appropriate screwdriver. The other 2 screws were identified under fluoroscopy. Using a drill bit and curet the screw heads were exposed. These 2 screws were now removed. Fluoroscopy confirmed removal appropriate hardware. At this point attention was turned to gentle manipulation under anesthesia. The elbow was flexed and gently extended. The patient asleep I was able to achieve extension to 30 and flexion to 120. Additional anterior capsule was released carefully. I was unable to achieve any further motion. The wound was thoroughly irrigated. Hemostasis was confirmed. Subcutaneous tissues closed with 3-0 Vicryl and skin was closed with 3-0 nylon. Sterile dressings were applied. Patient was awakened and transferred to recovery room in stable condition. Jaylen Orozco MD Oct 24, 2017 10:41
[2017-10-24 11:52] VITALS: TEMP 97.6
[2017-10-24 12:44] VITALS: BP 112/69; PULSE 91; RESP 18; O2SAT 94
--- NOTE | 2017-10-24 17:58 | RADRPT ---
EXAM DATE/TIME: 10/24/2017 10:23 [facility] COMPARISON: ELBOW RIGHT COMPLETE (4 VWS), August 24, 2017, 14:56. INDICATIONS : Hardware removal of the right elbow. MEDICAL HISTORY : Hypertension. Diabetes mellitus type II. SURGICAL HISTORY : Hardware placement. ENCOUNTER: Initial ACUITY: 1 day PAIN SCORE: Non-responsive. LOCATION: Right elbow. FINDINGS: Single frontal view of the elbow was performed digitally using C-arm after removal of screws. No met allic densities seen. CONCLUSION: Intraoperative image. Andrea Garcia MD on October 24, 2017 at 17:55 Board Certified Radiologist. This report was verified electronically.
--- NOTE | 2017-10-24 18:55 | EKG ---
Date Performed: 10/24/2017 Time Performed: 07:08:44 PTAGE: 52 years EKG: Sinus rhythm NORMAL ECG Since the prior tracing, there has been no significant change PREVIOUS TRACING : 10/21/2016 11.42 DOCTOR: Arlyn Wilson Interpretating Date/Time 10/24/2017 18:48:58
== END | disposition home or self-care (01) ==
LOC: HSDC 06:26
PROVIDERS: ATTEND Orthopaedic Surgery Orthopaedic Trauma
DX: T84.84XA Pain due to internal orthopedic prosthetic devices, implants and grafts, initial encounter (principal); M77.01 Medial epicondylitis, right elbow; G56.11 Other lesions of median nerve, right upper limb; I10 Essential (primary) hypertension; E11.9 Type 2 diabetes mellitus without complications; Y83.1 Surgical operation with implant of artificial internal device as the cause of abnormal reaction of the patient, or of later complication, without mention of misadventure at the time of the procedure; Z01.810 Encounter for preprocedural cardiovascular examination
CPT/HCPCS: 01740; 20680; 24006; 64415; 73070; 76000; 93005; J0131; J1100; J1580; J2250; J2405; J2710; J3010; J3370; J7050; J7120

== ENCOUNTER 2018-01-29 19:42 | Emergency (ER) | payer BC ==
[~2018-01-29] VITALS: Ht 172.7 cm; Wt 121.9 kg
[~2018-01-29 19:42] MED LIST changes: -ACETAMINOPHEN 1000 MG/100 ML 100 ML IV ONE; -ACETAMINOPHEN/HYDROcodone 325 MG/7.5 MG TAB PO PRN; -BUPIVACAINE HCL PF 0.5% 30 ML VIAL ONE; -CHLORHEXIDINE GLUCONATE 2 % 1 PACK (2 CLOTHS) TOPICAL PRN; -CHLORHEXIDINE GLUCONATE 4% SOLN 120 ML BTL TOPICAL SCH; -CLINDAMYCIN 900 MG/NS 100 ML IV SCH; -CLINDAMYCIN PHOS 900 MG/6 ML VIAL ONE; -DEXAMETHASONE SOD PHOS 4 MG/ML VIAL IV ONE; -FAT EMULSION 20% INJ 0 ML ONE; -GENTAMICIN SULFATE 80 MG/2 ML VIAL ONE; -GLYCOPYRROLATE 1 MG/5 ML SYRINGE IV PUSH ONE; -LACTATED RINGER'S 1000 ML IV PRN; -LIDOCAINE HCL 1% PF 5 ML AMPULE ONE; -LIDOCAINE HCL 1% PF 5 ML SYRINGE OTHER ONE; -METOPROLOL TARTRATE 25 MG TAB PO PRN; -MIDAZOLAM HCL 2 MG/2 ML VIAL ONE; -MORPHINE SULFATE 4 MG/ML INJ IV PUSH PRN; -NEOSTIGMINE 5 MG/5 ML SYRINGE IV PUSH ONE; -ONDANSETRON HCL 4 MG/2 ML VIAL IV ONE; -ONDANSETRON HCL 4 MG/2 ML VIAL IV PUSH PRN; -PROPOFOL 200 MG/20 ML AMP IV ONE; -ROCURONIUM INJ 50 MG/5 ML SYRINGE IV PUSH ONE; -SODIUM CHLORID 0.9% 500 ML IV PRN; -SODIUM CHLORIDE 0.9% FLUSH 10 ML FLUSH IV FLUSH PRN; -SODIUM CHLORIDE 0.9% FLUSH 10 ML FLUSH IV FLUSH SCH; -SODIUM CHLORIDE 0.9% INJ 100 ML ONE; -VANCOMYCIN 1000 MG/NS 250 ML (for <70 kg) IV SCH; -VANCOMYCIN HCL 1000 MG VIAL ONE
[2018-01-29 19:44] VITALS: BP 149/46; PULSE 95; RESP 18; TEMP 98.9; O2SAT 97
[2018-01-29] MEDS ORDERED: CLIN300C5 PO (20:04)
--- NOTE | 2018-01-29 20:09 | PD ---
HPI . Left thigh lesion Chief Complaint: Bite or Sting Time Seen by Provider: 19:56 Travel History International Travel<30 days: No Contact w/Intl Traveler<30days: No Traveled to known affect area: No History of Present Illness HPI Patient presents with chief complaint of an apparent bug bite to the left medial thigh. She states that she was fine when she went to bed last night but awakened this morning with the bite. It has gotten progressively worse over the course of the day. She states that it does not itch but does hurt. She rates the pain at 5/10. There are no modifying factors. PFSH Past Medical History Autoimmune Disease: No Cancer: No Cardiovascular Problems: No Diabetes: Yes Patient Takes Glucophage: Yes Diminished Hearing: No Endocrine: No Gastrointestinal Disorders: No Genitourinary: No Hepatitis: No Hiatal Hernia: No Immune Disorder: No Musculoskeletal: Yes (shattered R elbow 5 years ago) Neurologic: No Psychiatric: No Reproductive: No Respiratory: No Immunizations Current: Yes Thyroid Disease: No Tetanus Vaccination: < 5 Years Influenza Vaccination: Yes ?: Not Menopausal: Yes : 3 Para: 2 Miscarriage: 1 Ovarian Cysts: Yes (REMOVED , 98) Past Surgical History Abdominal Surgery: Yes (ovarian cyst and incisional hernia) AICD: No Body Medical Devices: R elbow hardware (REMOVED) Cardiac Surgery: No Ear Surgery: No Endocrine Surgery: No Eye Surgery: No Genitourinary Surgery: No Gynecologic Surgery: Yes (mult ovarian removed) Hysterectomy: Yes (partial) Joint Replacement: No Neurologic Surgery: No Oral Surgery: Yes (wisdom teeth. upper teeth removed.) Pacemaker: No Thoracic Surgery: No Other Surgery: Yes (1994 knee kemar. 94 ovarian cyst 96 incisional hernia carpal tunnel bilateral) Social History Alcohol Use: No Tobacco Use: No Substance Use: No Allergies-Medications (Allergen,Severity, Reaction): Coded Allergies: cefazolin (Verified Allergy, Severe, HIVES, 01/29/18) iodine (Verified Allergy, Severe, ANAPHYLACTIC, 01/29/18) potassium iodide (Verified Allergy, Severe, ANAPHYLACTIC, 01/29/18) povidone-iodine (Verified Allergy, Severe, ANAPHYLACTIC, 01/29/18) sodium iodide (Verified Allergy, Severe, ANAPHYLACTIC, 01/29/18) sodium iodide (Verified Allergy, Severe, ANAPHYLACTIC, 01/29/18) Reported Meds & Prescriptions Reported Meds & Active Scripts Active Clindamycin (Clindamycin HCl) 300 Mg Cap 600 Mg PO Q8H 10 Days Reported Invokamet Xr (Canagliflozin-Metformin ER 24 HR) 150-500 Mg Tab 1 Tab PO BID Review of Systems Except as stated in HPI: all other systems reviewed are Neg General / Constitutional: No: Fever, Chills Skin: Positive Change in Pigmentation, Positive Lesions Physical Exam Narrative GENERAL: Awake and alert and in no acute distress. SKIN: Warm and dry. She has a lesion on her left medial thigh. There is an area of bright red induration, warmth and tenderness which measures 3 cm. There is a paler area of erythema which measures 10 cm. Both areas have been outlined and dated. There is no fluctuance and no pointing. She does have a shotty inguinal lymph node on the left. HEAD: Normocephalic/atraumatic. EYES: Pupils are equal. Extraocular movements are intact. NECK: Normal range of motion. CARDIOVASCULAR: Regular rate and rhythm. RESPIRATORY: Nonlabored respirations. MUSCULOSKELETAL: Atraumatic. NEUROLOGICAL: Nonfocal. PSYCHIATRIC: Appropriate mood and affect. Data Data Last Documented VS Vital Signs Date Time Temp Pulse Resp B/P (MAP) Pulse Ox O2 Delivery O2 Flow Rate FiO2 01/29/18 19:44 98.9 95 18 149/46 (80) 97 Orders Orders Ed Discharge Order (01/29/18 20:05) MDM Medical Decision Making Medical Screen Exam Complete: Yes Emergency Medical Condition: Yes Differential Diagnosis My differential diagnosis includes but is not limited to localized wound infection, cellulitis, abscess Narrative Course This patient presents with an apparent bug bite to the left medial thigh. It is red, hot, swollen and tender. There is an associated inguinal lymph node. I will presume infection and treat her with clindamycin. She is to return in 2 days for a follow-up visit. Diagnosis Primary Impression: Cellulitis and abscess of leg Patient Instructions: General Instructions, Abscess (ED) Departure Forms: Tests/Procedures Additional Instructions: Return in 2 days for recheck. Return sooner is you are getting worse. Ibuprofen 4 tablets every 8 hours for pain and swelling. Benadryl 2 tablets every 6 hours also for swelling. Cool compresses to the area as much as possible for the next couple of days. Scripts Clindamycin (Clindamycin) 300 Mg Cap 600 MG PO Q8H for Infection for 10 Days, #60 CAP 0 Refills Prov: Wilma Coronado MD 01/29/18 Disposition: 01 DISCHARGE HOME Condition: Stable Wilma Coronado MD January 29, 2018 20:09
== END 2018-01-29 20:27 | disposition home or self-care (01) ==
LOC: PHEFT 19:42
DX: L03.116 Cellulitis of left lower limb (principal); S70.362A Insect bite (nonvenomous), left thigh, initial encounter; W57.XXXA Bitten or stung by nonvenomous insect and other nonvenomous arthropods, initial encounter; E11.9 Type 2 diabetes mellitus without complications
CPT/HCPCS: 99283